=== PATIENT | female | born 1960 | race Caucasian/White ===

== ENCOUNTER 2016-02-29 08:01 | Day surgery (SDC) | payer BC ==
[2016-02-28 12:42] VITALS: BMI 23.6
[2016-02-29] MEDS ORDERED: DEXAMETHASONE SOD PHOSPHATE/PF 10 MG/ML SDV ONE (09:44)
[2016-02-29] MEDS ORDERED: ROPIVACAINE HCL 0.5% 30ML VIAL ONE (09:44)
[2016-02-29] MEDS ORDERED: MIDAZOLAM HCL 2 MG/2 ML SINGLE DOSE VIAL ONE (09:44)
[2016-02-29] MEDS ORDERED: PROPOFOL 20 ML ONE ×6 (10:37→11:14)
[2016-02-29] MEDS ORDERED: CLINDAMYCIN PHOSPHATE 600 MG/4 ML VIAL ONE (11:02)
[2016-02-29] MEDS ORDERED: DEXAMETHASONE SOD PHOSPHATE 4 MG/1 ML VIAL ONE (11:23)
[2016-02-29] MEDS ORDERED: ONDANSETRON 4 MG/2 ML VIAL ONE (11:23)
[2016-02-29] MEDS ORDERED: ONDANSETRON 4 MG/2 ML VIAL IVPUSH PRN (12:23)
[2016-02-29] MEDS ORDERED: oxyCODONE HCL 5 MG TABLET PO PRN (12:23)
[2016-02-29] MEDS ORDERED: LACTATED RINGERS SOLUTION 1,000 ML IV SCH (12:30)
[2016-02-29 14:07] VITALS: TEMP 98.3
[2016-02-29 14:13] VITALS: BP 113/81; PULSE 70
--- NOTE | 2016-03-02 09:41 | OP ---
DATE OF OPERATION: 02/29/2016 PREOPERATIVE DIAGNOSIS: Right ankle lateral malleolus fracture. POSTOPERATIVE DIAGNOSIS: Right ankle lateral malleolus fracture. PROCEDURE PERFORMED: Open reduction and internal fixation of right ankle lateral malleolus fracture. SURGEON: Roseanne Gardner MD ORTHO TECH: SAE Brush FINDINGS: A horizontal fracture through distal portion of fibula, with displacement. REPAIR TYPE: A 6.5 cannulated screw was placed from the distal tip centrally for internal fixation. DESCRIPTION PROCEDURE: Informed consent was obtained. The patient was taken to the operating room, where the right lower extremity was prepped and draped in a sterile fashion. A tourniquet was placed on the upper leg and inflated to 250 mmHg. A lateral incision was made on the area of the fracture. The incision was then extended down to the bone, with careful attention to soft tissue dissection. The fracture line was identified. A curet was used to remove the loose debris and soft tissue. The wound was then irrigated with copious amounts of irrigation. A reduction clamp was placed, and the distal portion of the fibula was exposed. With the use of C-arm fluoroscopy, a cannulated wire was placed through the distal fibula, up the shaft of the fibula. This was then followed by a 6.5 screw, self-drilling, self-tapping, put up past the fracture line and allowed for reduction of the fracture site. Complete reduction was performed, confirmed with C-arm fluoroscopy. The screw head was then buried into the bone to prevent impingement. It was found to have bone coverage on all sides of it. The wound was then irrigated with copious amounts of irrigation and closed in layers using 0 Vicryl, 2-0 Vicryl and 3-0 Prolene. A sterile dressing and splint were placed. The patient was transferred to the recovery room without complication. ROSEANNE GARDNER M.D. [id number]
== END 2016-02-29 14:00 | disposition home or self-care (01) ==
LOC: FASU 08:01
PROVIDERS: ATTEND Orthopaedic Surgery
PROC: 0QSJ04Z Reposition Right Fibula with Internal Fixation Device, Open Approach (ICD-10-PCS; principal; 2016-02-29 09:30)
DX: S82.61XA Displaced fracture of lateral malleolus of right fibula, initial encounter for closed fracture (principal); X58.XXXA Exposure to other specified factors, initial encounter; Y93.9 Activity, unspecified; Y92.9 Unspecified place or not applicable
CPT/HCPCS: 73610-TC-RT; 76000-TC; 94760; 97116-GP